=== PATIENT | male | born 1945 | race Caucasian/White ===

== ENCOUNTER → 2016-06-13 | Outpatient (CLI) | payer OTHER | END | disposition home or self-care (01) | LOC: PCVCIMAG 09:24 | PROVIDERS: ATTEND Internal Medicine Cardiovascular Disease | DX: I65.23 Occlusion and stenosis of bilateral carotid arteries (principal); I25.10 Atherosclerotic heart disease of native coronary artery without angina pectoris; E11.9 Type 2 diabetes mellitus without complications; E78.5 Hyperlipidemia, unspecified; I10 Essential (primary) hypertension; Z95.5 Presence of coronary angioplasty implant and graft | CPT/HCPCS: 93325; 93351; 93880 ==

== ENCOUNTER → 2017-03-06 | Outpatient (CLI) | payer OTHER ==
--- NOTE | 2017-03-06 14:58 | PCVCIMAG ---
EXAM: BILATERAL CAROTID DUPLEX INDICATION: Carotid Occlusive Disease. FINDINGS: Doppler Measurements (centimeters per second): RIGHT: Peak CCA-88, Peak ECA-317, Diastolic ICA-73, Peak ICA-439, ICA/CCA Ratio-5.0. LEFT: Peak CCA-99, Peak ECA-360, Diastolic ICA-38, Peak ICA-171, ICA/CCA Ratio-1.7. RIGHT CAROTID: The carotid bulb has severe plaque. The proximal internal carotid artery shows 90% stenosis. The common carotid artery shows no significant stenosis. The external carotid artery shows 80% stenosis. LEFT CAROTID: The carotid bulb has moderate plaque. The proximal internal carotid artery shows 60% stenosis. The common carotid artery shows no significant stenosis. The external carotid artery shows 80% stenosis. Antegrade flow in both vertebral arteries. IMPRESSION: 90% stenosis of the right internal carotid artery with severe plaque. 60% stenosis of the left internal carotid artery with moderate plaque. LOC:[id number]
== END | disposition home or self-care (01) ==
LOC: PCVCIMAG 13:05
PROVIDERS: ATTEND Internal Medicine Cardiovascular Disease
DX: I25.10 Atherosclerotic heart disease of native coronary artery without angina pectoris (principal); I65.23 Occlusion and stenosis of bilateral carotid arteries; I77.9 Disorder of arteries and arterioles, unspecified; I10 Essential (primary) hypertension; E78.5 Hyperlipidemia, unspecified; E11.9 Type 2 diabetes mellitus without complications; R07.89 Other chest pain; R06.02 Shortness of breath
CPT/HCPCS: 36415; 80061; 93005; 93880; G0463

== ENCOUNTER → 2017-03-07 | Outpatient (CLI) | payer OTHER ==
[~2017-03-07] MED LIST: DIAZEPAM 10 MG TABLET. ONE; HEPARIN for ARTERIAL LINE 1,500 ML ONE; IOHEXOL 300 MG/ML 100ML VIAL. ONE; IOHEXOL 350 MG/ML 100 ML VIAL. ONE; IOHEXOL 350 MG/ML 50 ML VIAL. ONE; IV NORMAL SALINE 1000ML BAG 1,000 ML ONE; LIDOCAINE 1% Multi-Dose 20 ML VIAL. ONE; MIDAZOLAM HCL/PF 2 MG/2 ML VIAL. ONE; fentaNYL PF VIAL 100 MCG/2 ML VIAL ONE
--- NOTE | 2017-03-07 15:26 | PCVCINTER ---
EXAM: 1. CERVICOEPHALIC ARCH AORTOGRAM 2. BILATERAL CAROTID ANGIOGRAPHY 3. BILATERAL VERTEBROBASILAR ANGIOGRAPHY 4. BILATERAL RENAL ANGIOGRAPHY 5. BILATERAL ILIOFEMORAL ANGIOGRAPHY INDICATION: Carotid occlusive disease. Left subclavian steal. Hypertension. Renal atherosclerosis. Peripheral arterial disease PROCEDURE: Procedure and risks of the procedures listed above were discussed with the patient and consent obtained. Risks including but not limited to bleeding, infection, stroke, vascular injury, neurologic injury, embolization, allergic reactions, and contrast-induced nephropathy requiring dialysis were discussed as appropriate and consent obtained. Patient was placed on the angiography table. IV conscious sedation was utilized with appropriate monitoring for 60 minutes. The right groin was prepped and draped in the normal sterile fashion. Ultrasound was used to interrogate the right groin and demonstrate the right common femoral artery. An ultrasound image was saved. Under ultrasound guidance a 21 gauge needle was used to gain access into the right common femoral artery and a 6F vascular sheath was placed. Catheter was placed into the ascending aorta and cervicocephalic aortic arch angiogram performed. Catheter was placed into the suprarenal abdominal aorta and abdominal aortic angiogram performed. Catheter was placed at the aortic bifurcation and bilateral iliofemoral angiography performed. Catheter was placed into the right common carotid artery and right common carotid angiogram performed. Catheter was placed into the right subclavian artery and right vertebrobasilar angiogram obtained. Catheter was placed into the left common carotid artery and left common carotid angiogram performed. Catheter was placed into the left subclavian artery and left vertebro-basilar angiogram performed. Catheter was placed into the right renal artery and right renal angiogram performed. Catheter was placed into the left renal artery and left renal angiogram performed. Dr. Monteiro joined the procedure and he then performed coronary angiography. Please see his separate dictation for full details. Catheters and wires were removed and hemostasis obtained using the FISH device. No immediate complications. FINDINGS: Cervicocephalic arch aortogram: The origins of the great vessels show good patency. Cranial directed flow in both vertebral arteries. Right common carotid angiogram: 65% stenosis at the junction of the common carotid and internal carotid arteries not felt to be critically flow-limiting. The right anterior and middle cerebral distributions are within normal limits. The cavernous and petrous carotid arteries are patent. Mild stenosis origin external carotid artery. Left common carotid angiogram: Ulcerated plaque distal common carotid artery results in maximum 40% stenosis at the junction of the common carotid and internal carotid arteries. 80% stenosis at the origin of the external carotid artery. The left anterior and middle cerebral distributions are within normal limits. The cavernous and petrous carotids are patent. Right vertebrobasilar angiogram: The right vertebral artery is patent as is the basilar artery and both posterior cerebral arteries. Left vertebrobasilar angiogram: The left vertebral artery is patent as is the basilar artery and both posterior cerebral arteries. Right renal angiogram: Minimal plaque proximal vessel does not cause significant stenosis. Left renal angiogram: Minimal plaque proximal vessel does not cause significant stenosis. Bilateral iliofemoral angiogram: The abdominal aorta is patent. The right and left common iliac and external iliac arteries are patent. Both internal iliac arteries are patent. The right and left common femoral and profunda femoral arteries are patent. The upper portion of the superficial femoral arteries are patent bilaterally. IMPRESSION: 65% stenosis at the junction of the right common and right internal carotid arteries not felt to be critically flow-limiting. Ulcerated plaque at the junction of the left common and left internal carotid arteries causes maximum 40% stenosis. No high-grade internal carotid artery stenoses present. LOC:[id number]
--- NOTE | 2017-03-10 11:19 | PCVCINTER ---
APPROVED REPORT Patient Details Patient Status: Out-Patient Room #: 3 The patient is a 71 year-old Male Event Personnel Jose Luis Niño RN, Judson Stoll RT(R)(), Gregoria Escobedo RT(R) Risk Factors Arterial HypertensionDysplipidemia (Type: 1), Cerebrovascular Disease, Hypercholesterolemia, Renal Failure, Diabetes (Control: Oral)Last Creatanine 1.2Tobacco History (Never) Previous Procedures/Diagnoses Previous PCI, Previous Femoral Procedure, CAD, Renal failure->No dialysis, Cerebrovascular disease, Hypertension, Diabetes Procedure Narrative The patient was brought electively to the Cardiac Catheterization Laboratory and was prepped and draped in a sterile manner. The right femoral was infiltrated with 1% Lidocaine subcutaneous anesthesia. A 6fr sheath was inserted into the right femoral artery. Coronary angiography was performed using coronary diagnostic catheters. The right coronary system was accessed and visualized with a JR4 Diagnostic catheter. The left coronary system was accessed and visualized with a JL4 Diagnostic catheter. The left ventricle was accessed and visualized with a Pigtail Diagnostic catheter. Left ventriculogram was performed in TIDWELL projection. Closure device was deployed with a 6 Fr Fish. Hemostasis was obtained with manual pressure following sheath removal without any complications. The patient tolerated the procedure well and there were no complications associated with the procedure. There was no hematoma. Hemodynamics The aortic pressure is 120/61 mmHg with a mean of 86 mmHg. The left ventricular pressure is 130/8 mmHg with a mean of 16 mmHg. Conclusion #1 long left main free of disease giving rise to LAD and circumflex #2 LAD eccentric proximal lesion of 70-80% diffusely disease and then moderate in-stent restenosis and a mid vessel long area of stented segment 60-70% multiple areas within the stent and a preserved distal vessel #3 circumflex OM is large but nondominant mild irregularities are noted first OM or ramus branch has a 50% distal OM circumflex mild disease #4 dominant right subtotally occluded essentially occluded in the mid vessel which faintly fills right to left and left to left of the PDA JARAD #5 normal left ventricular size and systolic function EF 60% Recommendations and plan continue aggressive risk factor modification. Patient will best pacer with revascularization by bypass to the LAD diagonal system and [place] right coronary artery PDA CV surgical consultation No lifting for 48 hours to line tub Jacuzzi or [place] for a week
== END | disposition home or self-care (01) ==
LOC: PCVCINTER 10:59
PROVIDERS: ATTEND Nuclear Medicine Nuclear Cardiology
DX: I65.21 Occlusion and stenosis of right carotid artery (principal); G45.8 Other transient cerebral ischemic attacks and related syndromes; I70.1 Atherosclerosis of renal artery; I73.9 Peripheral vascular disease, unspecified
CPT/HCPCS: 36223; 36225; 36252; 75630; 76937; 93458; 99152; 99153; C1751; C1760; C1769; C1894; J1644; J2250; J3010; J7030; Q9967

== ENCOUNTER → 2017-06-05 | Outpatient (CLI) | payer OTHER | END | disposition home or self-care (01) | LOC: PCVCCLINIC 15:23 | DX: I25.10 Atherosclerotic heart disease of native coronary artery without angina pectoris (principal); I77.9 Disorder of arteries and arterioles, unspecified; I12.9 Hypertensive chronic kidney disease with stage 1 through stage 4 chronic kidney disease, or unspecified chronic kidney disease; N18.3 Chronic kidney disease, stage 3 (moderate); E11.22 Type 2 diabetes mellitus with diabetic chronic kidney disease; R09.89 Other specified symptoms and signs involving the circulatory and respiratory systems; E78.5 Hyperlipidemia, unspecified; Z79.82 Long term (current) use of aspirin; Z79.84 Long term (current) use of oral hypoglycemic drugs; Z79.899 Other long term (current) drug therapy | CPT/HCPCS: 80061; 93005; G0463 ==

== ENCOUNTER → 2017-10-02 | Outpatient (CLI) | payer OTHER | END | disposition home or self-care (01) | LOC: PCVCIMAG 09:50 | DX: I65.23 Occlusion and stenosis of bilateral carotid arteries (principal); I10 Essential (primary) hypertension; E78.5 Hyperlipidemia, unspecified; E11.9 Type 2 diabetes mellitus without complications; Z95.1 Presence of aortocoronary bypass graft | CPT/HCPCS: 93325; 93351; 93880 ==

== ENCOUNTER → 2018-08-13 | Outpatient (CLI) | payer OTHER | END | disposition home or self-care (01) | LOC: PCVCIMAG 08:46 | PROVIDERS: ATTEND Internal Medicine Cardiovascular Disease | DX: I65.23 Occlusion and stenosis of bilateral carotid arteries (principal); E78.5 Hyperlipidemia, unspecified | CPT/HCPCS: 93880 ==

== ENCOUNTER → 2018-10-11 | Outpatient (CLI) | payer OTHER ==
--- NOTE | 2018-10-11 11:22 | PCVCIMAG ---
EXAM: BILATERAL CAROTID DUPLEX INDICATION: Carotid Occlusive Disease. FINDINGS: Doppler Measurements (centimeters per second): RIGHT: Peak CCA-72, Peak ECA-249, Diastolic ICA-23, Peak ICA-92, ICA/CCA Ratio-1.3. LEFT: Peak CCA-76, Peak ECA-308, Diastolic ICA-28, Peak ICA-135, ICA/CCA Ratio-2.1. RIGHT CAROTID: Good color flow throughout a prior stent in the upper common carotid and extending into the proximal internal carotid artery. The proximal internal carotid artery shows no significant stenosis. The common carotid artery shows 60% stenosis. The external carotid artery shows no significant stenosis. LEFT CAROTID: The carotid bulb has mild plaque. The proximal internal carotid artery shows 40-50% stenosis. The common carotid artery shows no significant stenosis. The external carotid artery shows 80% stenosis. Antegrade flow in both vertebral arteries. IMPRESSION: Previous right internal carotid artery stent maintaining good patency. <40% stenosis of the left internal carotid artery with mild plaque. LOC:[id number]
== END | disposition home or self-care (01) ==
LOC: PCVCIMAG 10:15
PROVIDERS: ATTEND Nuclear Medicine Nuclear Cardiology
DX: I65.23 Occlusion and stenosis of bilateral carotid arteries (principal); I77.9 Disorder of arteries and arterioles, unspecified; I25.10 Atherosclerotic heart disease of native coronary artery without angina pectoris; I12.9 Hypertensive chronic kidney disease with stage 1 through stage 4 chronic kidney disease, or unspecified chronic kidney disease; E11.22 Type 2 diabetes mellitus with diabetic chronic kidney disease; N18.3 Chronic kidney disease, stage 3 (moderate); E78.5 Hyperlipidemia, unspecified; Z79.82 Long term (current) use of aspirin
CPT/HCPCS: 93880

== ENCOUNTER → 2019-04-12 | Outpatient (CLI) | payer OTHER ==
--- NOTE | 2019-04-12 09:28 | PCVCIMAG ---
EXAM: BILATERAL CAROTID DUPLEX INDICATION: Carotid Occlusive Disease. Right carotid stent with TCAR August 2018. FINDINGS: Doppler Measurements (centimeters per second): RIGHT: Peak CCA-94, Peak ECA-219, Diastolic ICA-27, Peak ICA-133, ICA/CCA Ratio-1.4. LEFT: Peak CCA-84, Peak ECA-215, Diastolic ICA-25, Peak ICA-139, ICA/CCA Ratio-1.7. RIGHT CAROTID: Previous stent upper common carotid artery and extending into the internal carotid artery has good color flow throughout and is maintaining adequate patency. The common carotid artery shows no significant stenosis. The external carotid artery shows 60% stenosis. LEFT CAROTID: The carotid bulb has mild plaque. The proximal internal carotid artery shows 40-50% stenosis. The common carotid artery shows no significant stenosis. The external carotid artery shows 60% stenosis. Antegrade flow in both vertebral arteries. IMPRESSION: Previous right carotid stent maintaining satisfactory patency. 40-50% stenosis of the left internal carotid artery with mild plaque. No change since September 2018 study. LOC:[id number]
== END | disposition home or self-care (01) ==
LOC: PCVCIMAG 08:48
PROVIDERS: ATTEND Internal Medicine Cardiovascular Disease
DX: I65.22 Occlusion and stenosis of left carotid artery (principal); Z95.5 Presence of coronary angioplasty implant and graft
CPT/HCPCS: 93880